=== PATIENT | male | born 1935 | race Caucasian/White ===

== ENCOUNTER 2017-03-29 02:08 | Inpatient (IN) | payer OTHER, MEDICARE ==
[~2017-03-29] VITALS: Ht 177.8 cm; Wt 100.2 kg
[~2017-03-29 02:08] MED LIST: LIPITOR20 M2 PO; METFORMIN HCL500 M3 PO; NAPROXEN500 M2 PO
--- NOTE | 2017-03-29 13:32 | Operative Report ---
Operative/Inv Procedure Report Surgery Date: 03/29/17 Name of Procedure: Right total knee arthroplasty Pre-Operative Diagnosis: Right knee osteoarthritis primary Post-Operative Diagnosis: Same Estimated Blood Loss: less than 50ml Surgeon/Compliance Monitor: KEE DOTY,Rusty ARRIAGA PA Anesthesia: block Implants: Herbie triathlon total knee system-size 5 femur, size 6 tibia, 9 mm cruciate retaining polyethylene insert, 33 patella Drains: None Specimens: Femoral, tibial, patellar bone Microbiology: Urine Tourniquet: 72 minutes Complications: None Condition: Stable Operative Indication: Patient is a 81-year-old man with a history of gradually worsening right knee pain secondary to end-stage osteoarthritis. He underwent treatment with medications and injections. Unfortunately, symptoms continued to worsen and conservative measures provided only short-term relief. He wished to proceed with total knee arthroplasty after risks, benefits and expectations were discussed. These included but were not limited to persistent knee pain, need for subsequent surgery, infection, DVT, injury blood vessel or nerve, anesthesia risks. Operative/Procedure Note Note: Patient was brought to the operating room and transferred to the operating table. Once under appropriate anesthesia the right lower extremity was prepped and draped in standard fashion. Preoperative IV antibiotics were given prophylactically. Leg was elevated exsanguinated and tourniquet was inflated. Standard anterior incision was made for anticipated medial parapatellar approach to the knee. Incision was taken down sharply to the retinaculum. I entered the knee joint through the medial parapatellar approach. Osteophytes were excised. Once the medial and lateral meniscal tissues were excised. Remnants of the ACL excised. I used the intramedullary drill to the enter the intramedullary canal of the femur. 5 valgus cut was chosen due to patient's valgus deformity. The cutting block was pinned in position and the distal femoral cut was made. The femur was then sized to a size 5. The size 5 cutting block was pinned in position and the 4 cuts were made with protection of the soft tissues circumferentially. I then turned my attention to the tibia. The external tibial alignment guide was applied and the cutting block was pinned in position for a neutral cut from medial to lateral and reproducing patient's posterior slow-paced on preoperative templating and intraoperative measurements. Again, soft tissues were protected with appropriate retractors and the tibial cut was made. The tibia was then sized to a size 6. Trial was then performed using the size 6 tibia size 5 femur and a 9 mm insert. I was satisfied with my soft tissue balancing. Extra Care was taken to avoid any significant stripping medially since patient did have a valgus overall alignment. This resulted in good balancing between medial and lateral soft tissues. I was satisfied with the full extension, mid flexion stability and full flexion to gravity. I then turned my attention to the patella. The patella was measured and the appropriate thickness was removed and then replaced with a size 33 patella. 3 lug holes were drilled. The tracking required lateral patella release to maximize patellofemoral tracking. I then marked my rotation of the tibia drilled my 2 lug holes for the femur and then removed all instrumentation from the knee. Finished preparation with the tibial punch with the appropriate rotation at was determined earlier. I then removed all instruments rotation and copious irrigation followed. I used the anterior chamfer bone of the femur to plug the intramedullary canal and to minimize postoperative hemarthrosis and swelling. After copious irrigation was completed and the cement was being mixed on the back table, it was applied to the dry clean bony surfaces of the tibia. The size 6 tibia was impacted in place and excess cement was removed with curettes. Cement was applied to the dry clean bony surfaces of the femur and the size 5 femur was packed [address] and the excess cement was removed with a curet. Cement was applied to the dry clean bony surfaces of the patella and the size 33 patella was impacted in place and excess cement was removed with a knife. Prior to the patellar application, a 9 mm insert was used and the knee was taken out to full extension which further compressed the interface between the prosthesis and the bone cement. While the cement was hardening I did a periarticular pericapsular injection of a cocktail which included exparel and normal saline. Once the cement was hardening took the knee through a range of motion and removed any excess pieces of that cement with osteotome. I was satisfied with the stability with a 9 mm insert. The trial was removed and the tibial tray was copiously irrigated. I make sure that that there were no bone fragments, cement fragments or soft tissue interpositioning. Then I impacted the definitive size 9 mm cruciate retaining polyethylene in place and the locking mechanism was confirmed. Copious irrigation followed. The tourniquet was then deflated at 72 minutes. Appropriate hemostasis was accomplished. Every level of closure was followed by copious irrigation. The medial retinacular approach was closed with an interrupted #1 Vicryl suture. Subcutaneous tissues closed in 2 layers with 2-0 Vicryl and skin was closed with a running 3-0 Vicryl suture with the knee in flexion. Appropriate dressings were applied and patient was awakened and taken to recovery room in good condition. No intraoperative complications. Blood loss was less than 50 mL due to tourniquet. Discharge Disposition: PACU
--- NOTE | 2017-03-29 16:26 | Admission Core Measures ---
Acute Coronary Syndrome Inclusion Criteria ACS Diagnosis No Inpatient Core Measures LDL Reminder: If No, please order W/I first 24hr of stay Congestive Heart Failure Inclusion Criteria CHF Diagnosis No Cerebrovascular accident Inclusion Criteria CVA/TIA Diagnosis No Inpatient Core Measures Bedside Swallow Eval Reminder: If BSE failed, place ST order Antithrombotic Reminder: Order Antithrombotic Medication by end of day 2 Antithrombotic Reminder: Document Reason Antithrombotic Not ordered by end of day 2 AFIB/Flutter Reminder: If Present, add to problem list AFIB/Flutter Reminder: Order Anticoag Medication for pts with AFIB/Flutter Atherosclerosis Reminder: If Present, add to problem list LDL Reminder: If No, please order W/I first 24hr of stay PT Order Reminder: If No, please order Venous thromboembolism Inpatient Core Measures VTE Risk Factors: Age > 40, [facility] prophylaxis d/t No contraindications No VTE Pharm Prophylaxis d/t No contraindications Inclusion Criteria - Per Current guidelines, there needs to be overlap - treatment for the first 5 days of Warfarin therapy. - Parenteral Anticoagulation (IV or SC) needs to be - given along with Warfarin therapy. VTE Diagnosis No VTE Type NONE VTE Confirmed by (Test) NONE Problem List As ranked by this Provider includes Assessment & Plan 1. Status post total left knee replacement HOME MEDS Home Med List Atorvastatin Calcium (Lipitor) 20 MG TABLET 1 TAB PO DAILY CHOLESTEROL ( Reported) Metformin HCl 500 MG TABLET 1 TAB PO BID DM II (Reported) Naproxen 500 MG TABLET 1 TAB PO DAILY PAIN (Reported)
--- NOTE | 2017-03-29 16:32 | Surgical Discharge Summary ---
Visit Information Visit Dates Admission Date: 03/29/17 Discharge Date: 04/01/17 History of Present Illness Chief Complaint: Right knee DJD/osteoarthritis Medical History Cardiovascular: hypertension, hyperlipidemia, 2ND DEGREE TYPE I HEART BLOCK Other Medical Hx: BPH Isolation History: Standard Surgical History Pertinent Surgical History: cholecystectomy, HERNIA REPAIR, TONSILLECTOMY, ERCP W SPHINCTEROTOMY AND BALLOON DILATATION Review of Systems: SEE H&P Hospital Course Course Attending Physician: KEE DOTY,[facility] Primary Care Physician: MAYNOR DOTY,[facility] Hospital Course: Patient was admitted to [facility] for elective surgery on 03/29/2017 and underwent right total knee replacement. 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 He was started on Eliquis postoperatively for DVT prophylaxis. The postoperative course remained uneventful. Pain was well controlled with oral pain medication, tolerated a regular diet, and voiding without difficulty. The patient was evaluated by physical therapy during admission, was deemed stable from a medical standpoint, and was discharged. Allergies: Coded Allergies: No Known Allergies (03/16/17) Significant Procedures: 03/29/2017 right total knee replacement Disposition Summary Disposition Principal Diagnosis: Right Knee DJD/osteoarthritis; status post right total knee replacement Additional Diagnosis: Second-degree type I heart block Discharge Disposition: SNF Discharge Instructions General Discharge Information Code Status: Full Code Patient's Diet: Diabetic Patient's Activity: You may ambulate as desired with rolling walker. Avoid strenuous activity and heavy lifting, pushing, or pulling. No driving while using narcotics. Follow-Up Instructions/Appts: Avoid bathing, but you may shower as desired. Dry dressing change once daily. Please f/u with Dr. Figueredo in 2 weeks. Please report any of the following symptoms to M.D.: Fever greater than 101, redness around the incision, drainage from the wound, chest pain, shortness of breath. Medications at Discharge Discharge Medications: Stop taking the following medications: Naproxen (Naproxen) 500 MG TABLET ORAL DAILY Continue taking these medications: Metformin HCl (Metformin HCl) 500 MG TABLET 1 Tablet ORAL TWICE DAILY Comments: NOT GIVEN IN HOSPITAL Atorvastatin Calcium (Lipitor) 20 MG TABLET 1 Tablet ORAL DAILY Comments: Last Taken: 04/01/17 Time: Start taking the following new medications: Apixaban (Eliquis) 2.5 MG TABLET 1 Tablet ORAL TWICE DAILY Qty = 60 No Refills Comments: Last Taken: 04/01/17 Time: Oxycodone HCl/Acetaminophen (Percocet 5-325 MG Tablet) 5 MG-325 MG TABLET 1-2 Tablet ORAL EVERY 4 HOURS NEEDED as needed for PAIN Qty = 30 No Refills Comments: Last Taken: 03/31/17 Time: 1000 Docusate Sodium (Colace) 100 MG CAPSULE 1 Capsule ORAL TWICE DAILY Days = 7 No Refills Instructions: HOLD FOR LOOSE BM'S
[2017-03-29] MEDS ORDERED: PERCOCET 5-3251 EACH PO (16:41)
[2017-03-29] MEDS ORDERED: ELIQUIS2.5 M1 PO (16:41)
[2017-03-29] MEDS ORDERED: COLACE100 M1 PO (16:41)
--- NOTE | 2017-03-29 16:43 | Patient Discharge Instructions ---
Discharge Instructions General Discharge Information You were seen/treated for: Right knee DJD/osteoarthritis You had these procedures: Right total knee replacement Watch for these problems: Fever greater than 101, redness, drainage, chest pain, shortness of breath, difficulty bearing weight Do not soak the wound: Yes Daily wet to dry dressings: No No bath, but you may shower: Yes Other wound care: Avoid bathing, but you may shower as desired. Dry dressing change once daily. Special Instructions: continue your anticoagulation (Eliquis) until further instructed by your orthpedist. follow up with your fur pointer as out patient in 1-2 weeks for recheck of your bradycardia. Diet Continue normal diet: Yes Recommended Diet: Diabetic Activity Full Activity/No Limits: No Activity Self Limited: Yes Pounds, do NOT lift more than: 5 Activity Limited to: Weight bear as tolerated Other activity limits: You may ambulate as desired with rolling walker. Avoid strenuous activity and heavy lifting, pushing, or pulling. No driving while using narcotics. Acute Coronary Syndrome Inclusion Criteria At DC or during hospital stay patient has or had the following: ACS DIAGNOSIS No Discharge Core Measures Meds if any: Prescribed or Continued at Discharge Meds if any: NOT Prescribed or Continued at Discharge Congestive Heart Failure Inclusion Criteria At DC or during hospital stay patient has or had the following: CHF DIAGNOSIS No Discharge Core Measures Meds if any: Prescribed or Continued at Discharge Meds if any: NOT Prescribed or Continued at Discharge Cerebrovascular accident Inclusion Criteria At DC or during hospital stay patient has or had the following: CVA/TIA Diagnosis No Discharge Core Measures Meds if any: Prescribed or Continued at Discharge Meds if any: NOT Prescribed or Continued at Discharge Venous thromboembolism Inclusion Criteria VTE Diagnosis No VTE Type NONE VTE Confirmed by (Test) NONE Discharge Core Measures - Per Current guidelines, there needs to be overlap - treatment for the first 5 days of Warfarin therapy. - If discharged on Warfarin prior to 5 days of - overlap therapy, the patient will need to be - assessed for post discharge needs including - *Post discharge parental anticoagulation - *Warfarin and/or parental anticoagulation education - *Follow up date to check INR post discharge At least 5 days overlap therapy as Inpatient No Meds if any: Prescribed or Continued at Discharge Note: Overlap Therapy is Warfarin and Anticoagulant Meds if any: NOT Prescribed or Continued at Discharge
--- NOTE | 2017-03-29 17:03 | PN- Orthopedic ---
Subjective Subjective: POSTOP CHECK Pt was seen in pacu. He has no major complaints and denies pain. No nausea or emesis, but no appetite at the moment. Otherwise stable and denies GOLDBERG, dizziness , CP, shortness of breath. Objective Vital Signs and I&Os HR 48, BP 123/58, Sat 95% on 2L O2 via NC, Temp 96.8, respirations 18 Physical Exam: General: Patient is awake and alert. No acute distress. Cardiac: Bradycardic with occasional irregularity. Pulmonary: Lungs are clear bilaterally. Extremities: The right lower extremity dressing is clean, dry, and intact. There is no apparent dressing. Lower extremity sensation is intact. Strength of dorsiflexion and plantar flexion is 4-5 out of 5 on the operative side. Assessment/Plan Assessment/Plan Patient is a 81-year-old male with past medical history significant for hypertension, hyperlipidemia, type 2 diabetes, second-degree type I heart block, and BPH who is now postoperative day #0 status post right total knee replacement. -He had a cardiac evaluation preoperatively and it was advised that he be admitted to the telemetry floor for monitoring postoperatively. Plan: -Advance diet as tolerated. -Continue IV fluids for now. -Keep Mcclellan catheter in place overnight for I's and O's. -Pain control with morphine or Percocet as needed. On-Q pain catheter will be placed for additional relief. -Eliquis for DVT prophylaxis. -PT consult for mobilization. Weight-bear as tolerated. -IV antibiotics x 24 hours for prophylaxis. -F/u cbc, lytes in AM. -Plan for dressing change on postoperative day #2. -Home meds have been resumed. Hold metformin and use insulin sliding scale. We 'll also hold naproxen due to bleeding risk. Core Measures/Miscellaneous Mcclellan Catheter Date In: 03/29/17 Still Needed? Yes Venous Thromboembolism VTE Risk Factors: Age > 40, Surgery VTE Contraindications: No Contraindications VTE Diagnosis: No VTE Type: NONE VTE Confirmed by (Test): NONE Beta Filiberto Is Beta Filiberto a Home Med? No Antibiotics Is Patient on Antibiotics? Yes If Yes: prophylaxis
[2017-03-29 19:07] VITALS: BP 152/70
[2017-03-29 21:09] VITALS: BP 134/74
[2017-03-29 23:33] VITALS: BP 124/76; BP 138/72
[2017-03-30 02:29] VITALS: BP 98/52
[2017-03-30 05:00] VITALS: BP 100/56
--- NOTE | 2017-03-30 07:25 | PN- Student ---
Subjective Subjective: Patient was seen this am, reports 8-9/10 pain in his right knee. States he had pain all night, was given percocet PO at 3:30am which he says helped, but the pain has since returned. He otherwise denies chest/abdominal pain, SOB, n/v, headaches/dizziness. Has not eaten or passed flatus yet, reports minimal appetite. Objective Objective: Vital Signs Result Date Time Pulse Ox 96 03/30 0500 B/P 100/56 03/30 0500 O2 Delivery Nasal Cannula 03/30 0500 Temp 98.4 03/30 0500 Pulse 71 03/30 0500 Resp 20 03/30 0500 O2 Flow Rate 2.0L 03/29 2333 Intake & Output 03/30 0000 03/29 1600 03/29 0800 Intake Total 1020 Output Total 250 Balance 770 Intake, IV 300 Intake, Oral 720 Output, Urine 250 Patient 221 lb Weight Weight Reported by Patient Measurement Method General: awake, alert, oriented, 9/10 pain in right knee Lungs: CTAB, no wheeze/rales/rhonchi Heart: S1 S2, RRR, no M,R,G Abdomen: soft, mild distension, normoactive bowel sounds, non-tender Extremities: warm, distal pulses 2+, mild popliteal region tenderness, no calf tenderness bilaterally,gross sensory/motor function intact and equal bilaterally , ALPS in place right knee: Dressings clean, dry and intact, mild shazia-incisional tenderness, post-op inflammation nolasco in place iv line running Assessment/Plan Assessment: This is a 81 y/o male POD # 1 right total knee replacement with PMH significant for second degree type I heart block, htn, hld, dm, and bph. He has right knee pain post-op that is improved with percocet PO. Post-op bradycardia improved this am. Plan: Diet: advance as tolerated Pain: Manage PRN with PO percocet, continue onq until tomorrow DVT ppx: ALPS, eliquis BID, OOB PT: WBAT Consider D/C nolasco today Abx for prophylaxis Dressing change tomorrow Cardiology called and made aware of post op bradycardia - consider consult Will discuss with attending
[2017-03-30 08:05] LABS: ABSOLUTE BASOPHIL COUNT 0 /CUMM (0.0-0.2); ABSOLUTE EOSINOPHIL COUNT 0.1 /CUMM (0.0-0.7); ABSOLUTE GRANULOCYTE CT 8.2 /CUMM (1.4-6.5); ABSOLUTE LYMPH COUNT 0.8 /CUMM (1.2-3.4); ABSOLUTE MONOCYTE COUNT 1.3 /CUMM (0.10-0.60); BASOPHIL % 0.1 % (0.0-2.0); EOSINOPHIL % 1.1 % (0-5); GRANULOCYTE % 78.8 % (42.2-75.2); HEMATOCRIT 32.2 % (42-52); MEAN CORPUSCULAR HGB 29.3 PG (27.0-31.0); MEAN CORPUSCULAR HGB CONC 32.9 G/DL (33.0-37.0); MEAN CORPUSCULAR VOLUME 89.1 FL (80.0-94.0); MEAN PLATELET VOLUME 10.9 FL (7.4-10.4); PLATELET COUNT 151 /CUMM (130-400); RBC DISTRIBUTION WIDTH 15.3 % (11.5-14.5); RED BLOOD CELL CT 3.61 /CUMM (4.70-6.10); WHITE BLOOD CELL COUNT 10.4 /CUMM (4.8-10.8)
--- NOTE | 2017-03-30 08:21 | PN- Orthopedic ---
See Addendum Subjective Subjective: pod#1 s/p right tka no major issues overnight denies cp, palpitations, dizziness, noo n+v with diet Objective Vital Signs and I&Os Vital Signs Date Time Temp Pulse Resp B/P B/P Pulse O2 O2 Flow FiO2 Mean Ox Delivery Rate 03/30 0500 98.4 71 20 100/56 96 Nasal Cannula 03/30 0229 100.5 70 20 98/52 98 Nasal Cannula 03/29 2333 99.3 76 20 138/72 97 Nasal 2.0L Cannula 03/29 2222 Nasal 2.0L Cannula 03/29 2109 98.0 68 20 134/74 97 Nasal 2.0L Cannula 03/29 1932 Nasal 2.0L Cannula 03/29 1907 98.1 63 20 152/70 97 Nasal 2.0L Cannula Intake & Output 03/30 1600 03/30 0800 03/30 0000 03/29 1600 03/29 0800 03/29 0000 Intake Total 680 1020 Output Total 525 250 Balance 155 770 Intake, IV 680 300 Intake, Oral 720 Output, Urine 525 250 Patient 221 lb Weight Weight Reported by Patient Measurement Method Physical Exam: cv: rrr lungs; clear abd: soft, +bs ext: drsg dry, distal cms intact Assessment/Plan Assessment/Plan ortho stable has know av block, dr chandler aware, will discuss with dr de la vega covering today plan eliquis for dvt prophylaxis oob with pt cont tele for now d/c nolasco/ivf Core Measures/Miscellaneous Nolasco Catheter Date In: 03/29/17 Venous Thromboembolism VTE Risk Factors: Age > 40, Surgery VTE Contraindications: No Contraindications VTE Diagnosis: No VTE Type: NONE VTE Confirmed by (Test): NONE Beta Filiberto Is Beta Filiberto a Home Med? No Antibiotics Is Patient on Antibiotics? Yes If Yes: prophylaxis
[2017-03-30 09:00] VITALS: BP 116/54
--- NOTE | 2017-03-30 11:12 | NUR ---
PT IS A+OX4. C/O INCREASED PAIN TO RIGHT KNEE. MEDICATED WITH MORPHINE AND PERCOCET PER ORDERS. SEE EMAR. +2 PITTING EDEMA TO RLE. LEGS ELEVATED WHILE ON RECLINER. ICE PACK GIVEN. FAUST REMOVED AT 0915. URINE CONCENTRATED. IVF DC. PO FLUIDS ENCOURAGED. HR BRIEFLY DROPPED TO 46 WHILE SITTING IN RECLINER LATE THIS MORNING. ASYMPTOMATIC. EARLIER THIS MORNING PT DESATED TO 87% ON 2L WHEN WORKING WITH PT. AT REST ON 2L HE IS LOW TO MID 90s. PT HAS CRACKLES THROUGHOUT LUNGFIELDS. EXTENSIVE ENCOURAGEMENT AND TEACHING DONE TO USE INCENTIVE SPIROMETER 10X/HR. NO C/O SOB. MOISES PUENTES WAS UPDATED
--- NOTE | 2017-03-30 12:45 | RADIOLOGY REPORT ---
EXAMINATION: XR PORTABLE CHEST CLINICAL INFORMATION: Volume overload. Increasing oxygen requirement COMPARISON: None TECHNIQUE: Portable frontal view of the chest was obtained. FINDINGS: Monitoring devices overlie the patient. Slight rotation to the right. There is some tortuosity aorta. The cardiac silhouette is mildly prominent with a left ventricular configuration. No hilar mass. There is generalized interstitial prominence without any alveolar edema or focal consolidation. No large pleural fluid collection or pneumothorax. Chronic rotator cuff disease right shoulder. IMPRESSION: Low lung volumes with generalized interstitial prominence. No lobar or segmental consolidation or alveolar edema The chronicity of the interstitial disease is uncertain
[2017-03-30 13:00] VITALS: BP 118/54
[2017-03-30 23:01] VITALS: BP 116/58
--- NOTE | 2017-03-31 06:57 | PN- Orthopedic ---
See Addendum Subjective Subjective: The patient was seen this morning postoperatively day #2. He complains of some incisional pain but reports the pain medications help him. He had no other complaints the current time he denies any chest pain, palpitations, or difficulty breathing. Objective Vital Signs and I&Os Vital Signs Date Time Temp Pulse Resp B/P B/P Pulse O2 O2 Flow FiO2 Mean Ox Delivery Rate 03/31 0000 95 Nasal 2.0L Cannula 03/30 2301 98.0 67 18 116/58 96 Nasal 1.0L Cannula 03/30 2200 95 Nasal 2.0L Cannula 03/30 1300 98.2 67 20 118/54 94 Nasal 2.0L Cannula 03/30 0900 98.7 65 20 116/54 96 Nasal 2.0L Cannula 03/30 0800 Nasal 2.0L Cannula 03/30 0800 96 Nasal 2.0L Cannula Intake & Output 03/31 0800 03/31 0000 03/30 1600 03/30 0800 03/30 0000 03/29 1600 Intake Total 820 5686 404 5659 Output Total 275 480 525 250 Balance 545 900 155 770 Intake, IV 680 300 Intake, Oral 820 1380 720 Output, Urine 275 480 525 250 Patient 221 lb Weight Weight Reported by Patient Measurement Method Physical Exam: Gen.: Alert and in no obvious distress Skin: Warm and dry Extremities: Bilateral lower extremities are warm without calf tenderness or significant edema. Gross motor and sensory are intact. Right knee surgical dressing was changed and the incision was dry without signs of infection. Assessment/Plan Assessment/Plan Assessment: 81-year-old male status post right total knee arthroplasty postoperative day #2. The patient is progressing as expected and his pain is under adequate control. Plan: Out of bed with physical therapy Continue current pain regiment Wean O2 GI and DVT prophylaxis Follow-up morning laboratory studies Daily dry dressing change Core Measures/Miscellaneous Mcclellan Catheter Date In: 03/29/17 Venous Thromboembolism VTE Risk Factors: Age > 40, Surgery VTE Contraindications: No Contraindications VTE Diagnosis: No VTE Type: NONE VTE Confirmed by (Test): NONE Beta Filiberto Is Beta Filiberto a Home Med? No Antibiotics Is Patient on Antibiotics? No
[2017-03-31 06:58] VITALS: BP 114/50
--- NOTE | 2017-03-31 11:40 | Cons- Cardiology ---
General Information and HPI Consulting Request Date of Consult: 03/31/17 Requested By: KEE DOTY,CORINA Reason for Consult: Bradycardia Primary log chipper: Dr. 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 The patient had cardiac clearance for surgery as an outpatient recently. Status post surgery he feels well with no complaints of chest pain, dizziness, headache, slurring of speech, orthopnea, paroxysmal nocturnal dyspnea, or productive cough. Have some chronic dyspnea on exertion which is been grossly unchanged for 2 years. Not associated with chest pain or palpitations. He does complain of moderate postoperative pain controlled with medication. No intraoperative cardiac complications were reported. Allergies/Medications Allergies: Coded Allergies: No Known Allergies (03/16/17) Home Med List: Apixaban (Eliquis) 2.5 MG TABLET 1 TAB PO BID DVT PROPHYLAXIS Atorvastatin Calcium (Lipitor) 20 MG TABLET 1 TAB PO DAILY CHOLESTEROL ( Reported) Docusate Sodium (Colace) 100 MG CAPSULE 1 CAP PO BID CONSTIPATION HOLD FOR LOOSE BM'S Metformin HCl 500 MG TABLET 1 TAB PO BID DM II (Reported) Naproxen 500 MG TABLET 1 TAB PO DAILY PAIN (Reported) Oxycodone HCl/Acetaminophen (Percocet 5-325 MG Tablet) 5 MG-325 MG TABLET 1-2 TAB PO Q4P PRN PAIN Current Medications: Current Medications Sig/Pialr Start time Last Medication Dose Route Stop Time Status Admin Acetaminophen 650 MG Q4P PRN 03/29 1915 AC PO Apixaban 2.5 MG BID 03/30 1000 AC 03/31 PO 0952 Atorvastatin Calcium 20 MG DAILY 03/30 1000 AC 03/31 PO 0952 Docusate Sodium 100 MG BID 03/31 1000 AC PO Docusate Sodium 100 MG BID 03/29 2200 DC 03/31 PO 0952 Insulin Human Regular 4 UNITS .STK-MED ONE 03/30 1731 DC IV 03/30 1732 Insulin Human Regular 2 UNITS .STK-MED ONE 03/30 1223 DC IV 03/30 1224 Insulin Human Regular 0 TIDAC/HS 03/29 1700 AC 03/30 SC 1735 Ketorolac 15 MG Q6-PRN PRN 03/30 0930 AC 03/30 Tromethamine IV 1228 Morphine Sulfate 2 MG Q3P PRN 03/29 191 03/30 IV 0814 Oxycodone/ 1 TAB Q4P PRN 03/29 1915 AC 03/30 Acetaminophen PO 0332 Oxycodone/ 2 TAB Q4P PRN 03/29 1915 AC 03/31 Acetaminophen PO 0612 Patient Medication 1 ED .STK-MED ONE 03/30 1414 DC Teaching ED 03/30 1415 Polyethylene Glycol 17 GM DAILY 03/31 1000 AC PO Polyethylene Glycol 17 GM DAILY 03/30 1000 DC 03/31 PO 0952 Ropivacaine 500 ML ONCE ONE 03/29 1645 DC 03/29 ON-Q Ball 1 BAG INJ 03/31 1024 1645 Review of Systems Review of Systems: Review of systems as per HPI. The remainder of a 10 point review of systems was reviewed and was otherwise negative. Past History Medical History Blood Transfusion Hx: No EENT: NONE Cardiovascular: 2ND DEGREE TYPE I HEART BLOCK Respiratory: NONE Gastrointestinal: DIVERTICULOSIS Hepatic: NONE Renal: NONE Musculoskeletal: gout Psychiatric: NONE Endocrine: diabetes Blood Disorders: NONE Cancer(s): NONE ELECTROMECHANIC/Reproductive: NONE Other Medical Hx: BPH Surgical History Surgical History: cholecystectomy, HERNIA REPAIR TONSILLECTOMY ERCP W SPHINCTEROTOMY AND BALLOON DILATATION Psychosocial History Where Do You Live? Other Services at Home: None Smoking Status: Former Smoker Exam & Diagnostic Data Vital Signs and I&O Vital Signs Date Time Temp Pulse Resp B/P B/P Pulse O2 O2 Flow FiO2 Mean Ox Delivery Rate 03/31 0848 94 Nasal 2.0L Cannula 03/31 0658 99.1 63 18 114/50 96 Nasal 2.0L Cannula 03/31 0600 95 Nasal 2.0L Cannula 03/31 0000 95 Nasal 2.0L Cannula 03/30 2301 98.0 67 18 116/58 96 Nasal 1.0L Cannula 03/30 2200 95 Nasal 2.0L Cannula 03/30 1300 98.2 67 20 118/54 94 Nasal 2.0L Cannula Intake & Output 03/31 1600 03/31 0800 03/31 0000 03/30 1600 03/30 0800 03/30 0000 Intake Total 357 095 3912 680 1020 Output Total 325 275 480 525 250 Balance 155 545 900 155 770 Intake, IV 680 300 Intake, Oral 495 358 4274 720 Output, Urine 325 275 480 525 250 Patient 221 lb Weight Weight Reported by Patient Measurement Method Physical Exam: General: no apparent distress. Alert. Eyes: No obvious scleral icterus. HEENT: No jugular venous distention or abnormal jugular venous pulsations. Cardiovascular: Normal intensity S1/S2. Regular. Respiratory: Lungs clear to auscultation bilaterally. Abdomen: Soft, nontender with no guarding or rebound tenderness. Musculoskeletal: No clubbing or cyanosis noted, no edema Skin: Warm Neurologic: No gross focal deficits noted. Labs/Saúl Results: Laboratory Tests 03/30 0618 Chemistry Sodium (137 - 145 mmol/L) 133 L Potassium (3.5 - 5.1 mmol/L) 4.4 Chloride (98 - 107 mmol/L) 100 Carbon Dioxide (22 - 30 mmol/L) 25 Anion Gap (5 - 16) 8 BUN (9 - 20 mg/dL) 11 Creatinine (0.7 - 1.2 mg/dL) 0.8 Estimated GFR (>60 ml/min) > 60 BUN/Creatinine Ratio (7 - 25 %) 13.8 Hematology CBC w Diff NO MAN DIFF REQ WBC (4.8 - 10.8 /CUMM) 10.4 RBC (4.70 - 6.10 /CUMM) 3.61 L Hgb (14.0 - 18.0 G/DL) 10.6 L Hct (42 - 52 %) 32.2 L MCV (80.0 - 94.0 FL) 89.1 MCH (27.0 - 31.0 PG) 29.3 RDW (11.5 - 14.5 %) 15.3 H Plt Count (130 - 400 /CUMM) 151 MPV (7.4 - 10.4 FL) 10.9 H Gran % (42.2 - 75.2 %) 78.8 H Lymphocytes % (20.5 - 51.1 %) 7.9 L Monocytes % (1.7 - 9.3 %) 12.1 H Eosinophils % (0 - 5 %) 1.1 Basophils % (0.0 - 2.0 %) 0.1 Absolute Granulocytes (1.4 - 6.5 /CUMM) 8.2 H Absolute Lymphocytes (1.2 - 3.4 /CUMM) 0.8 L Absolute Monocytes (0.10 - 0.60 /CUMM) 1.3 H Absolute Eosinophils (0.0 - 0.7 /CUMM) 0.1 Absolute Basophils (0.0 - 0.2 /CUMM) 0 PUBS MCHC (33.0 - 37.0 G/DL) 32.9 L Diagnostic Data EKG Results No inpatient EKG currently available from this admission CXR Results IMPRESSION: Low lung volumes with generalized interstitial prominence. No lobar or segmental consolidation or alveolar edema The chronicity of the interstitial disease is uncertain Other Results Telemetry tracings were personally reviewed and show sinus rhythm and sinus bradycardia with no advanced heart block or prolonged pauses Previous echocardiogram and nuclear stress test showed normal perfusion pattern with normal ejection fraction Assessment/Plan Assessment/Plan 1. Status post elective right total knee arthroplasty on 03/29/2017 2. 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 History of diabetes 4. History of hyperlipidemia The patient remains hemodynamically stable status post elective orthopedic surgery. Telemetry review shows no evidence of high-grade heart block or prolonged pauses. AV richard blockers remain contraindicated. Postoperative DVT prophylaxis per orthopedics. No indication for inpatient pacemaker placement or further inpatient cardiac testing. The patient should follow-up with his primary log chipper, Dr. Arthur, following discharge. Please do not hesitate to contact me with any additional questions or concerns. Vic Ziegler MD [facility] Consult Acknowledgment - Thank you for your consult request.
[2017-03-31 14:36] VITALS: BP 124/62
--- NOTE | 2017-03-31 15:44 | RADIOLOGY REPORT ---
EXAMINATION: XR KNEE, RIGHT CLINICAL INFORMATION: Please evaluate hardware after first resting change. Status post right total knee arthroplasty. COMPARISON: None TECHNIQUE: Two views of the right knee. FINDINGS: The patient is status post total right knee arthroplasty. The prosthetic components are well seated, normally aligned and intact. [place]ss[place] bone fragment is seen posterior to the distal femoral component. No acute fracture or dislocation is seen. Moderate size suprapatellar knee joint effusion is noted. Old healed fracture deformity of the proximal fibula is seen with mild degenerative changes in the tibiofibular joint. IMPRESSION: 1. Normal alignment status post total right knee arthroplasty. No evidence for hardware failure or [place] bone fracture. 2. Moderate size suprapatellar knee joint effusion.
[2017-03-31 23:23] VITALS: BP 112/58
--- NOTE | 2017-04-01 07:12 | PN- Orthopedic ---
Subjective Subjective: Complaints as stiffness in the right knee and difficulty bending. No fever no flulike illness. Pain is controlled. He has been out of bed to the bathroom, states his mobility is very limited Objective Vital Signs and I&Os Vital Signs Date Time Temp Pulse Resp B/P B/P Pulse O2 O2 Flow FiO2 Mean Ox Delivery Rate 04/01 06 Nasal 2.0L Cannula 03/31 2323 98.5 86 16 112/58 93 Nasal Cannula 03/31 2200 Nasal 2.0L Cannula 03/31 220 96 Nasal 2.0L Cannula 03/31 1740 94 Nasal 2.0L Cannula 03/31 1436 100.0 72 18 124/62 97 Nasal 2.0L Cannula 03/31 0848 94 Nasal 2.0L Cannula Intake & Output 04/01 0800 04/01 0000 03/31 1600 03/31 0800 03/31 0000 03/30 1600 Intake Total 150 100 400 688 639 1712 Output Total 850 700 325 275 480 Balance -700 100 -300 155 545 900 Intake, Oral 150 100 400 440 582 2357 Number 1 Bowel Movements Output, Urine 850 700 325 275 480 Physical Exam: Well-developed well-nourished no apparent distress. HEENT: Atraumatic, extraocular motion intact Neck: Supple, no lymphadenopathy Respiratory: No respiratory distress Extremities: No edema RIGHT lower extremity dressing in place, Incision line is clean dry and intact with minimal bloody drainage. Large joint effusion Range of motion is 0-30. Neurovascularly intact distally Bilateral calves are supple, nontender. Neuro: Alert and oriented x3 Psych: Mood affect normal, normal memory normal judgment. Skin: Warm and dry, no rash on exposed skin Assessment/Plan Assessment/Plan Postoperative day #3 status post right total knee arthroplasty Orthopedically stable Dressing change daily Continue anticoagulation with eliquis Appreciate cardiology input, no further action needed for patient's bradycardia, he is asymptomatic Out of bed with physical therapy, work on knee range of motion Patient would benefit from assisted facility for continued physical therapy and rehabilitation, plan for discharge today. Core Measures/Miscellaneous Mcclellan Catheter Date In: 03/29/17 Venous Thromboembolism VTE Risk Factors: Age > 40, Surgery VTE Contraindications: No Contraindications VTE Diagnosis: No VTE Type: NONE VTE Confirmed by (Test): NONE Beta Filiberto Is Beta Filiberto a Home Med? No Antibiotics Is Patient on Antibiotics? No
[2017-04-01 09:00] VITALS: BP 122/60
[2017-04-01 11:24] VITALS: BP 122/60
== END 2017-04-01 14:05 | DRG 470 ==
LOC: SDA 02:08 → 1NO 02:08 → CANRESERV 16:22 → ENRESERV 16:22 → ENTRNSPT 18:31 → 1NO 19:06 → CMPTRNSPT 19:55 → 1NO 04-01 12:35
PROVIDERS: Physician Assistant Surgical; ADMIT Orthopaedic Surgery
PROC: 0SRC0J9 Replacement of Right Knee Joint with Synthetic Substitute, Cemented, Open Approach (ICD-10-PCS; principal; 2017-03-29)
PROC: 3E0T3CZ (ICD-10-PCS; 2017-03-29)
DX: M17.11 Unilateral primary osteoarthritis, right knee (principal); E11.9 Type 2 diabetes mellitus without complications; I44.1 Atrioventricular block, second degree; R00.1 Bradycardia, unspecified; I10 Essential (primary) hypertension; E78.00 Pure hypercholesterolemia, unspecified; Z79.84 Long term (current) use of oral hypoglycemic drugs; G51.0 Bell's palsy; N40.0 Benign prostatic hyperplasia without lower urinary tract symptoms; E78.5 Hyperlipidemia, unspecified; M10.9 Gout, unspecified
CPT/HCPCS: 1NP; 73560-RT; 82436; 87086; 97110-GO; 97116-GO; 97161-GP; 97530-GO; C1713; C9290; J1170; J1815; J2175; J2250; J2274; J2795; J3010; J3370; J7040